=== PATIENT | female | born 1990 | race Caucasian/White ===

== ENCOUNTER 2019-04-17 13:16 | Outpatient (CLI) | payer BC, OTHER ==
[~2019-04-17 13:16] MED LIST: AMOX500C2 PO; FRNCD3C PO; HYDR1TAB PO; HYDR30CR87 RC; IBP800T PO; METR500T PO; NITR-65 PO; NITR100C3 PO; TYLENOL
== END 2019-04-17 13:51 | disposition home or self-care (01) ==
LOC: SLEEP 13:16
PROVIDERS: ATTEND Surgery
DX: G47.33 Obstructive sleep apnea (adult) (pediatric) (principal); E66.01 Morbid (severe) obesity due to excess calories; F39 Unspecified mood [affective] disorder

== ENCOUNTER → 2021-02-24 | Outpatient (CLI) | payer OTHER | LOC: LAB 10:19 | PROVIDERS: ATTEND Family Medicine | DX: N92.5 Other specified irregular menstruation (principal) | CPT/HCPCS: 36415; 84702 ==

== ENCOUNTER → 2021-02-28 | Outpatient (CLI) | payer OTHER | LOC: LAB | PROVIDERS: ATTEND Family Medicine | DX: O20.0 Threatened abortion (principal) | CPT/HCPCS: 36415; 84702 ==

== ENCOUNTER → 2021-03-03 | Outpatient (CLI) | payer OTHER | LOC: LAB 07:47 | PROVIDERS: ATTEND Family Medicine | DX: O20.0 Threatened abortion (principal) | CPT/HCPCS: 36415; 84702 ==

== ENCOUNTER → 2021-05-04 | Outpatient (CLI) | payer OTHER | LOC: LAB 10:39 | PROVIDERS: ATTEND Family Medicine | DX: Z34.90 Encounter for supervision of normal pregnancy, unspecified, unspecified trimester (principal); Z3A.00 Weeks of gestation of pregnancy not specified | CPT/HCPCS: 36415; 84702; 84703 ==

== ENCOUNTER → 2021-05-06 | Outpatient (CLI) | payer OTHER | LOC: LAB 08:12 | PROVIDERS: ATTEND Family Medicine | DX: O20.0 Threatened abortion (principal) | CPT/HCPCS: 36415; 84702 ==

== ENCOUNTER → 2021-05-09 | Outpatient (CLI) | payer OTHER | LOC: LAB 09:37 | PROVIDERS: ATTEND Family Medicine | DX: O20.0 Threatened abortion (principal); Z3A.00 Weeks of gestation of pregnancy not specified | CPT/HCPCS: 36415; 84702 ==

== ENCOUNTER → 2021-05-11 | Outpatient (CLI) | payer OTHER | LOC: LAB 16:11 | DX: O20.0 Threatened abortion (principal) | CPT/HCPCS: 36415; 84702 ==

== ENCOUNTER 2021-05-25 02:43 | Emergency (ER) | payer OTHER ==
[~2021-05-25] VITALS: Ht 165.1 cm; Wt 135.0 kg
[2021-05-25 02:54] VITALS: BP 148/114
--- NOTE | 2021-05-25 03:22 | ED EENT ---
History of Present Illness General Chief Complaint: Ear Problems Stated Complaint: F O IN LEFT EAR(BUG) Source: patient Exam Limitations: no limitations History of Present Illness Date Seen by Provider: May 25, 2021 Time Seen by Provider: 03:20 Initial Comments This 30-year-old young lady presents to the emergency room with complaints of sensation of foreign body in her left ear. She believes a bug crawled in her ear while she was asleep. She thinks it is still there and she can feel it moving. Allergies and Home Medications Allergies Coded Allergies: No Known Drug Allergies (Unverified , 04/14/12) Patient Home Medication List Home Medication List Reviewed: Yes Hc Acetate/Pramoxine Hcl (Proctocream-Hc 1% Cream) 30 Gm Cream.appl, 30 GM RC QID Prescribed by: DANA REYNOSO on 11/12/13 1519 Nitrofurantoin/Nitrofuran Mac (Macrobid) 100 Mg Capsule, 1 EACH PO BID Prescribed by: DANA REYNOSO on 11/12/13 1519 Review of Systems Review of Systems Constitutional: no symptoms reported Eyes: No Symptoms Reported Ears: See HPI Nose: no symptoms reported Mouth: no symptoms reported Throat: no symptoms reported Neurological: No Symptoms Reported Past Axsszad-Eyehhd-Xtnhqq Hx Patient Social History Tobacco Use?: Yes Alcohol Use?: Yes Past Medical History Surgeries: Yes Tonsillectomy Respiratory: No Cardiac: No Neurological: No : No Reproductive Disorders: No Sexually Transmitted Disease: No HIV/AIDS: No Genitourinary: No Gastrointestinal: No Musculoskeletal: No Endocrine: No HEENT: No Loss of Vision: Denies Hearing Impairment: Denies Cancer: No Psychosocial: No Adverse Reaction/Blood Tranf: No Physical Exam Vital Signs Vital Signs - First Documented 05/25/21 02:54 Temp 36.0 Pulse 74 Resp 20 B/P (MAP) 148/114 (125) Pulse Ox 100 Height, Weight, BMI Height: 5'5" Weight: 230lbs. oz. [id number]; BMI Method:Stated General Appearance: WD/WN, no apparent distress Ears: left ear other (Shiny iridescent green object in the left ear was seen with otoscope. Object was moving. When otoscope was retracted, a large perez spider crawled out of the ear and was grasped with a gauze pad. Ear was reexamined and no inflammatory changes or foreign bodies were identified.) Neurologic/Psychiatric: manager private II-XII nml as tested, alert, normal mood/affect, oriented x 3 Skin: normal color, warm/dry Progress/Results/Core Measures Progress Progress Note : Progress Note Spider crawled out of the ER without interventions. Spider was identified as a likely member of the perez spider family and not a brown recluse. See discharge instructions for further information. Departure Impression Primary Impression: Foreign body in ear Qualified Codes: T16.2XXA - Foreign body in left ear, initial encounter Disposition: HOME, SELF-CARE Condition: Improved Departure-Patient Inst. Decision time for Depature: 03:15 Referrals: NO,LOCAL PHYSICIAN (PCP/Family) Primary Care Physician Patient Instructions: NO INSTRUCTIONS GIVEN Add. Discharge Instructions: Monitor your here for symptoms such as pain, fever or drainage. Return to care if these symptoms occur. Avoid placing anything in your ear for at least 1 week including any types of drops, Q-tips, etc. as this may cause any microscopic debris to be disrupted and rubbed against your ear canal or eardrum. Call with questions or concerns. All discharge instructions reviewed with patient and/or family. Voiced understanding. NIALL BUTLER MD May 25, 2021 03:22
== END 2021-05-25 03:50 | disposition home or self-care (01) ==
LOC: EDUNIT# 02:43 → ER 02:47
DX: T16.2XXA Foreign body in left ear, initial encounter (principal); Z72.0 Tobacco use
CPT/HCPCS: 99281